=== PATIENT | female | born 1955 | race African-American/Black ===

== ENCOUNTER 2020-08-09 18:00 | Observation (INO) | payer MEDICARE, SELFPAY ==
[2020-08-09] VITALS (7 sets, daily range): BP systolic 128–140; BP diastolic 75–87; PULSE 80–114; RESP 18–25; TEMP 36.4; O2SAT 98–100
--- NOTE | ~2020-08-09 | XR_ITS ---
EXAMINATION: XR chest 1V portable EXAM DATE: 08/09/2020 19:03 INDICATION: Shortness of breath, wheezing cough. History of asthma and hypertension. TECHNIQUE: Portable AP frontal chest x-ray was obtained. There is no prior study for comparison. FINDINGS: The lungs are clear. There are no pleural effusions. Cardiac silhouette is prominent but magnified on this AP technique. There is no pneumothorax suspected. Mild degenerative changes of t he bones. IMPRESSION: No acute cardiopulmonary findings. Reviewed, dictated and finalized at location A.
--- NOTE | 2020-08-09 18:11 | ECG_ITS ---
Measurements Intervals [place] Rate: 106 P: 34 ME: 176 QRS: -4 QRSD: 96 T: 44 QT: 372 QTc: 495 Interpretive Statements SINUS TACHYCARDIA NONSPECIFIC ST & T-WAVE ABNORMALITY- DIFFUSE LEADS ABNORMAL ECG Electronically Signed On 08-09-2020 19:37:21 CDT by Reji Waite D.O.
--- NOTE | 2020-08-09 18:13 | ED.SOB ---
HPI - SOB/Dyspnea General Chief Complaint: Shortness of Breath/Dyspnea Stated Complaint: DIFFICULTY BREATHING,HX ASTHMA Time Seen by Provider: 08/09/20 18:06 Source: patient Mode of arrival: EMS Limitations: no limitations History of Present Illness HPI Narrative: This is a 65 year old female with history of asthma and hypertension who presents for evaluation of worsening shortness of breath. She states her daughter has been spray aerosols throughout the house all day. Her breathing has gradually gotten worse throughout the day. She reports hoarseness , cough and difficulty breathing. EMS gave patient an albuterol neb with Decadron 10 mg in route. Related Data Allergies Allergy/AdvReac Type Severity Reaction Status Date / Time iohexol Allergy Stopped Verified 08/09/20 18:20 [From contrast - CT, X-RAY] Breathing meperidine [From Demerol] Allergy Anaphylaxis Verified 08/09/20 18:20 Review of Systems Review of Systems: All systems reviewed & are unremarkable except as noted in HPI and below Constitutional: Constitutional: Denies chills Cardiovascular: Cardiovascular: Denies chest pain Respiratory: Respiratory: Reports cough and Reports dyspnea Gastrointestinal: Gastrointestinal: Denies abdominal pain and Denies nausea PMFSH Past Medical History Medical History (Updated 08/09/20 @ 23:38 by Yamileth Virgen MD) Asthma Hypertension Surgical History Surgical History (Updated 08/09/20 @ 18:14 by Yamileth Virgen MD) Hx of cholecystectomy Social History Social History (Updated 08/09/20 @ 18:14 by Yamileth Virgen MD) Smoking status: Never smoker Gender identity (if verbalized by the patient): Female Exam Const: General: alert Orientation/consciousness: patient oriented x3 HENMT: Head: normocephalic and atraumatic Face and sinus: face symmetric Mouth: Yes Normal oral and palatal mucosa present, Yes lip normal, Yes oropharynx normal and Yes moist mucous membranes Eyes: EOM: EOMs intact bilaterally Chest: Chest palpation & inspection: normal inspection of the chest Resp: Effort & Inspection: labored, no retractions and not tachypneic Auscultation: wheezes Cardio: Rate: regular rate Rhythm: regular rhythm Heart sounds: no murmurs GI: GI Palp: Yes Soft to palpation, No Tenderness to palpation present (GI) and No Guarding due to palpation present (GI) Auscultation: normal bowel sounds Skin: General skin exam: normal color Rashes: no rashes Neuro: General: patient oriented x3 and moves all extremities Psych: Mental Status: mental status grossly normal Affect: normal affect Course Reevaluation(s) Reevaluation #1: PAtient presented with likely asthma exacerbation. She receiving epi nephrine and afterwards she became extremely anxious and shaky. She was able to talk and follow commands. She was given ativan 0.5 mg to calm her down. Date: 08/09/20 Time: 18:30 Reevaluation #2: Patient is sleepy but she denies sob or chest pain. She is getting potassium supplementation Date: 08/09/20 Time: 20:00 Consultations Consultation #1: I Discussed case with Dr. Harper who accepts patient to medical floor for observation Date: 08/09/20 Time: 20:50 Vital Signs Vital signs: Vital Signs Pulse Rate 102 H 08/09/20 18:00 Respiratory Rate 18 08/09/20 18:00 Blood Pressure 140/75 08/09/20 18:00 Pulse Oximetry 100 08/09/20 18:00 Temperature 97.6 F 08/09/20 23:08 Pulse Rate 80 08/09/20 23:08 Respiratory Rate 18 08/09/20 23:08 Blood Pressure 132/78 08/09/20 23:08 Pulse Oximetry 99 08/09/20 23:08 MDM - SOB/Dyspnea Lab Data Attestation: I reviewed the patient's lab results. Result diagrams: 08/09/20 18:58 08/09/20 18:58 Labs: Lab Results 08/09/20 08/09/20 08/09/20 Range/Units 18:41 18:58 18:58 WBC 6.0 (4.5-10.0) K/mm3 RBC 4.26 (4.2-5.4) M/mm3 Hgb 12.4 (12.0-15.0) g/dL Hct 39.0 (37.0-47.
[2020-08-09] MEDS: diphenhydrAMINE HCl INJ 50 MG/ML VIAL 25 MG IV PUSH (18:22)
[2020-08-09] MEDS: FAMOTIDINE 20 MG/2 ML VIAL IV PUSH ×2 (18:22→22:45)
[2020-08-09] MEDS: IPRATROPIUM BR 0.02% INH SOLN 0.5 MG/2.5 ML VIAL INHALATION (18:23)
[2020-08-09] MEDS: ALBUTEROL SULFATE NEB 2.5 MG/0.5 ML INH 5 MG INHALATION (18:23)
[2020-08-09] MEDS: EPINEPHrine HCL INJ 1 MG/ML AMPUL 0.3 MG IM (18:23)
[2020-08-09] MEDS: LORazepam INJ (*CRX) 2 MG/ML VIAL 0.5 MG IV PUSH (18:42)
[2020-08-09 18:53] LABS: Alveolar/Arterial O2 Gradient 49.2 mmHg; Base Excess ABG 0.3 mEq/l (+/-2.0); Carboxyhemoglobin 0.4 % THb (0-2.0); Fractional Inspired Oxygen 21 %; HCO3 ABG 23.8 mEq/l (22.0-26.0); Methemoglobin ABG 0.3 %THb (0-1.5); Oxygen Saturation ABG 91.8 % (95.0-100.0); Oxyhemoglobin 90.2 % THb (90.0-100.0); PCO2 ABG 34.9 mmHg (35.0-45.0); PO2 ABG 58.7 mmHg (80.0-100.0); Reduced Hemoglobin 9.1 %THb (0-5.0); Total Hemoglobin 13.4 g/dL (12.0-18.0); pH ABG 7.452 (7.350-7.450)
[2020-08-09 18:54] LABS: Device ROOM AIR; Modified Allen's Test Pass; Site Drawn LEFT RADIAL
[2020-08-09 19:08] LABS: Basophils Percent Auto 0.2 % (0.2-1.2); Eosinophils Absolute Auto 0.1 K/mm3 (0-0.3); Eosinophils Percent Auto 1.7 % (0-4.4); Hemoglobin 12.4 g/dL (12.0-15.0); Lymphocytes Percent Auto 36.7 % (18.3-44.2); Mean Corpuscular HGB Conc 31.8 g/dl (32-36); Mean Corpuscular Hemoglobin 29.1 pg (26-34); Mean Corpuscular Volume 91.5 fl (80-100); Mean Platelet Volume 9.9 fl (7.4-10.4); Monocytes Absolute Auto 0.4 K/mm3 (0.1-0.6); Monocytes Percent Auto 7.2 % (2.6-8.5); Neutrophils Absolute Auto 3.3 K/mm3 (1.3-6.7); Neutrophils Percent Auto 54.2 % (45.5-73.1); Platelet Count Result 290 k/mm3 (150-375); Red Blood Count 4.26 M/mm3 (4.2-5.4); Red Cell Distribution Width 13.7 % (11.5-14.5)
[2020-08-09 19:21] LABS: Alanine Aminotransferase 17 U/L (4-35); Albumin Level 4.5 g/dL (3.5-5.1); Alkaline Phosphatase 103 U/L (38-126); Anion Gap 8 mmol/L (8-16); Aspartate Amino Transferase 36 U/L (14-36); Bilirubin,Total 0.5 mg/dL (0.2-1.3); Blood Urea Nitrogen 14 mg/dL (7-17); Calcium 9.3 mg/dL (8.4-10.2); Carbon Dioxide 27 mmol/L (22-30); Chloride 106 mmol/L (98-107); Estimated Glomerular Filt Rate > 60; Glucose 161 mg/dL (65-105); Potassium 2.8 mmol/L (3.4-5.0); Sodium 141 mmol/L (137-145)
[2020-08-09 19:25] LABS: Partial Thromboplastin Time 27.5 SECONDS (22.3-36.8); Prothrombin Time 14.1 Seconds (11.1-14.7)
--- NOTE | 2020-08-09 19:53 | PC.NURSE ---
Pharmacy sending up potassium drip at this time.
[2020-08-09] MEDS: POTASSIUM CHLORIDE 20 MEQ TABLET 40 MEQ PO (20:07)
[2020-08-09 20:10] LABS: Troponin I < 0.012 ng/mL (0.000-0.034)
--- NOTE | 2020-08-09 21:26 | PM.IMHP ---
H&P: HPI History of Present Illness Date/Time: 08/09/20 21:26 Chief Complaint: Shortness of breath Narrative: This is a 65-year-old female with past medical history significant for asthma patient presented to the emergency room due to worsening shortness of breath she states that she has been in her usual state of health up until at home her daughter was using a spray aerosols and these might have triggered her asthma attack. She denies any fevers rigors or chills no cough no sputum production no nausea no vomiting no diarrhea no abdominal pain. Preliminary workup has been essentially nonrevealing. Patient received nebulizer treatments in the emergency room and required to be placed on 2 L of supplemental oxygen. At the time of my visit patient was feeling much better already and she denied any complaints at the point. A chest x-ray was unremarkable. An ABG showed a PO2 of 53 and aunt chemistry was significant for a potassium of 2.8 Review of Systems Review of Systems: All systems reviewed & are unremarkable except as noted in HPI and below Constitutional: Constitutional: Denies chills Cardiovascular: Cardiovascular: Denies chest pain and Reports dyspnea Respiratory: Respiratory: Reports cough and Reports dyspnea Gastrointestinal: Gastrointestinal: Denies abdominal pain and Denies nausea PMFSH Past Medical History Medical History (Updated 08/09/20 @ 22:15 by Kevin Harper MD) Asthma Hypertension Surgical History Surgical History (Updated 08/09/20 @ 18:14 by Yamileth Virgen MD) Hx of cholecystectomy Social History Social History (Updated 08/09/20 @ 18:14 by Yamileth Virgen MD) Smoking status: Never smoker Gender identity (if verbalized by the patient): Female Meds Home Medications and Allergies Allergies Allergy/AdvReac Type Severity Reaction Status Date / Time iohexol Allergy Stopped Verified 08/09/20 18:20 [From contrast - CT, X-RAY] Breathing meperidine [From Demerol] Allergy Anaphylaxis Verified 08/09/20 18:20 Vital Signs Vital Signs - 24 hr 08/09/20 18:00 08/09/20 18:23 08/09/20 20:05 Pulse Rate 114 H 84 113 H Respiratory Rate 18 22 H 20 Blood Pressure 140/75 128/87 Pulse Oximetry 100 100 Exam Narrative: Exam Narrative: Laying in gurney Const: General: comfortable, no acute distress, well developed, alert and awake Nutritional Appearance: average body habitus Orientation/consciousness: patient oriented x3 HENMT: Head: normal to inspection, normocephalic and atraumatic Ears: hearing grossly normal bilaterally Face and sinus: normal facial exam Eyes: General: appearance normal, both eyes and all related structures Pupils: Equal, round and reactive pupils present EOM: EOMs intact bilaterally Neck: Neck: full ROM, no lymphadenopathy and no JVD Thyroid: thyroid normal Lymphatic: no lymphadenopathy noted Resp: Effort & Inspection: normal respiratory effort and able to speak in complete sentences Auscultation: clear to auscultation bilaterally Cardio: Jugular venous distension: no JVD Rate: regular rate Rhythm: regular rhythm Heart sounds: S1 normal heart sound present and S2 normal heart sound present GI: GI Palp: Yes Soft to palpation and Yes No hepatosplenomegaly present : General: Yes deferred Skin: Rashes: no rashes Wounds: no wounds Neuro: General: patient oriented x3 and CN's II-XI intact bilaterally Cranial nerves: Yes CN's II-XII intact bilaterally and Yes Equal, round and reactive pupils present Cognition (Neuro): normal cognition Speech: normal speech Gait exam (Neuro): Normal gait present Motor exam (neuro): 5/5 motor strength present throughout Extrem: General: normal to inspection, full ROM, no joint enlargement and no pedal edema H&P: Results Labs Labs: Short CBC 08/09/20 Range/Units 18:58 WBC 6.0 (4.5-10.0) K/mm3 Hgb 12.4 (12.0-15.0) g/dL Hct 39.0 (37.0-47.0) % Plt Count 290 (150-375) k/mm3 [facility] 05
[2020-08-10] VITALS (11 sets, daily range): BP systolic 129–147; BP diastolic 63–88; PULSE 72–96; RESP 16–18; TEMP 35.9–36.3; O2SAT 93–98; BMI 30.5
[2020-08-10 00:07] LABS: Glucose Point of Care 158 (65-105)
[2020-08-10 06:06] LABS: Anion Gap 3 mmol/L (8-16); Blood Urea Nitrogen 10 mg/dL (7-17); Calcium 9.4 mg/dL (8.4-10.2); Carbon Dioxide 27 mmol/L (22-30); Chloride 108 mmol/L (98-107); Estimated CRCL calculation 90 ml/min; Estimated Glomerular Filt Rate > 60; Glucose 132 mg/dL (65-105); Potassium 4.5 mmol/L (3.4-5.0); Sodium 138 mmol/L (137-145)
[2020-08-10] MEDS: predniSONE 40 MG, predniSONE 10 MG 50 MG PO (09:18)
[2020-08-10 09:30] LABS: Glucose Point of Care 105 (65-105)
[2020-08-10] MEDS: PANTOPRAZOLE 40 MG TABLET PO (09:35)
[2020-08-10] MEDS: PRAVASTATIN SODIUM 20 MG TABLET 40 MG PO (09:35)
[2020-08-10] MEDS: FAMOTIDINE 20 MG/2 ML VIAL IV PUSH ×2 (09:35→20:41)
[2020-08-10] MEDS: amLODIPine BESYLATE 5 MG TABLET 10 MG PO (09:35)
[2020-08-10] MEDS: IPRATROPIUM BR 0.02% INH SOLN 0.5 MG/2.5 ML VIAL INHALATION ×2 (13:04→20:17)
[2020-08-10] MEDS: ALBUTEROL SULFATE NEB 2.5 MG/0.5 ML INH INHALATION ×2 (13:04→20:18)
[2020-08-10 13:57] LABS: Glucose Point of Care 108 (65-105)
--- NOTE | 2020-08-10 15:02 | PM.IMPN ---
Progress Note: A&P Assessment and Plan (1) Acute respiratory failure with hypoxemia: Code(s): J96.01 - Acute respiratory failure with hypoxia Status: Acute Assessment and Plan: Patient was placed on 2 L via nasal cannula on arrival with improvement of her oxygenation. At this time she is resting comfortably on room air, 97%. Will continue monitoring oxygenation with continued treatment of acute asthma exacerbation. (2) Asthma with exacerbation: Code(s): J45.901 - Unspecified asthma with (acute) exacerbation Status: Acute Assessment and Plan: Patient has symptoms of an asthma exacerbation due to a cleaning spray her daughter used in her house. The patient's daughter was taking her to work later that evening and she began having shortness of breath, wheezing, and felt like her throat was closing up. She has had similar symptoms before where she needed he has an EpiPen on herself. Initial vitals showed she was tachycardic at 102 beats per minute, respiratory rate 18, oxygenation 100% on room air, blood pressure 140/75, and afebrile. Initial labs showed normal CBC with differential, normal coag panel, ABG showed hyperventilation with elevated PTH, low CO2 and oxygen levels. She was found to have hypokalemia at 2.8 which was replenished. Chest x-ray shows no acute cardiopulmonary disease. On arrival to the emergency room they gave her epinephrine as well as breathing treatments with only minimal improvement of her symptoms. She continued to have shortness of breath issues and was admitted under observation for further evaluation and asthma exacerbation treatment. Patient is still having some chest tightness, shortness of breath, wheezing-will start scheduled DuoNeb treatments q.6 hours, IV Solu-Medrol 40 mg q.6 hours and continue monitoring. She was on 3 different inhalers for her asthma which was prescribed by her PCP, but she has not been on them for 1 year because she use to get free samples from her PCPs office and has not been able to get them for a while. Will call her pharmacy to see what inhalers she had been on so we can prescribe them at discharge. (3) Acute hypokalemia: Code(s): E87.6 - Hypokalemia Status: Acute Assessment and Plan: Was 2.8 on arrival. Replenished. Now normal. Time Spent With Patient Time with patient: 25 - 35 minutes Subjective Date/time seen: 08/10/20 15:02 Interval history: Date of service 08/10/2020: She reports having some chest tightness, trouble taking a deep breath, shortness of breath with walking and wheezing. She has a history of having severe asthma exacerbations and been on steroids multiple times in the past. She has had these EpiPen on herself before due to an allergic reaction. She does feel slightly lightheaded as well with walking around. She denies any fevers, chills, productive cough, leg swelling, calf pain, or any other symptoms at this time. Review of Systems Review of Systems: All systems reviewed & are unremarkable except as noted in HPI and below Exam Narrative: Exam Narrative: General: 65-year-old woman sitting up in bed talking on the phone. Appears comfortable. In no acute distress. Skin: No jaundice or cyanosis. Good skin turgor. Neck: Full range of motion. Supple. Respiratory: Decreased lung sounds throughout, slight end-expiratory wheezing noted to lower lung arriaga bilaterally. No rales or rhonchi. No bony chest wall tenderness. Cardiovascular: The heart has a regular rate and rhythm without murmur. Lower extremities: No lower extremity edema. Distal pulses are easily palpated. No calf tenderness to palpation. Gastrointestinal: The abdomen is soft, nontender and nondistended with active bowel sounds. Psychiatric: Lucid and oriented. Memory intact. Neurologic: No focal
[2020-08-10 17:40] LABS: Glucose Point of Care 138 (65-105)
[2020-08-10] MEDS: methylPREDNISolone SOD SUCC 40 MG VIAL IV PUSH (17:42)
[2020-08-10 21:34] LABS: Glucose Point of Care 180 (65-105)
[2020-08-11] MEDS: methylPREDNISolone SOD SUCC 40 MG VIAL IV PUSH ×2 (00:13→06:32)
[2020-08-11] MEDS: IPRATROPIUM BR 0.02% INH SOLN 0.5 MG/2.5 ML VIAL INHALATION ×2 (02:28→08:54)
[2020-08-11] MEDS: ALBUTEROL SULFATE NEB 2.5 MG/0.5 ML INH INHALATION ×2 (02:28→08:54)
[2020-08-11 02:30] VITALS: PULSE 76; RESP 18
[2020-08-11 02:40] VITALS: PULSE 78; RESP 18
[2020-08-11 05:42] VITALS: BP 127/76; PULSE 69; RESP 18; TEMP 36.6; O2SAT 98
[2020-08-11] MEDS: amLODIPine BESYLATE 5 MG TABLET 10 MG PO (08:02)
[2020-08-11] MEDS: FAMOTIDINE 20 MG/2 ML VIAL IV PUSH (08:03)
[2020-08-11] MEDS: PRAVASTATIN SODIUM 20 MG TABLET 40 MG PO (08:03)
[2020-08-11 08:18] LABS: Glucose Point of Care 137 (65-105)
[2020-08-11 08:56] VITALS: PULSE 76; RESP 20; O2SAT 96
[2020-08-11 09:08] VITALS: PULSE 76; RESP 20
--- NOTE | 2020-08-11 11:25 | PM.DS ---
DS: Admitting Diagnosis Admitting Diagnosis Admitting Diagnosis: SOB DS: Discharge Diagnosis Discharge Diagnosis (1) Asthma with exacerbation: Code(s): J45.901 - Unspecified asthma with (acute) exacerbation Status: Acute Assessment and Plan: Patient is a 65 year old woman with a history of asthma, who presented to the ER with shortness of breath, feeling like her throat was closing up after breathing in cleaning solution at her home earlier that day. She has had similar symptoms before where she needed he has an EpiPen on herself. Initial vitals showed she was tachycardic at 102 beats per minute, respiratory rate 18, oxygenation 100% on room air, blood pressure 140/75, and afebrile. Initial labs showed normal CBC with differential, normal coag panel, ABG showed hyperventilation with elevated PTH, low CO2 and oxygen levels. She was found to have hypokalemia at 2.8 which was replenished. Chest x-ray shows no acute cardiopulmonary disease. On arrival to the emergency room they gave her epinephrine as well as breathing treatments with only minimal improvement of her symptoms. She continued to have shortness of breath issues and was admitted under observation for further evaluation and asthma exacerbation treatment with Duoneb treatments, IV Solu-Medrol 40 mg q.6 hours. She was feeling much better, felt like her breathing was back to baseline. She was restarted on her Symbicort, given prednisone taper, Rx for EpiPen and Albuterol Inhaler. The patient understands and agrees with the plan all questions answered. Told the patient she has a follow-up with her primary care provider for further evaluation and treatment. (2) Acute respiratory failure with hypoxemia: Code(s): J96.01 - Acute respiratory failure with hypoxia Status: Acute Assessment and Plan: Patient was placed on 2 L via nasal cannula on arrival with improvement of her oxygenation. At this time she is resting comfortably on room air, 97%. Will continue monitoring oxygenation with continued treatment of acute asthma exacerbation. (3) Acute hypokalemia: Code(s): E87.6 - Hypokalemia Status: Acute Assessment and Plan: Was 2.8 on arrival. Replenished. Now normal. DS: Summary Hospital Course Hospital Course: See above Status at Discharge Cognitive/behavioral status at discharge: Stable, improved. Time Spent with Patient Time attestation: Total time spent providing and/or coordinating discharge services: 41 Time spent: Greater than 30 minutes Exam Narrative: Exam Narrative: General: 65-year-old woman sitting up in bed talking on the phone. Appears comfortable. In no acute distress. Skin: No jaundice or cyanosis. Good skin turgor. Neck: Full range of motion. Supple. Respiratory: Good air movement in all lung arriaga. No wheezing, rales or rhonchi. No bony chest wall tenderness. Cardiovascular: The heart has a regular rate and rhythm without murmur. Lower extremities: No lower extremity edema. Distal pulses are easily palpated. No calf tenderness to palpation. Gastrointestinal: The abdomen is soft, nontender and nondistended with active bowel sounds. Psychiatric: Lucid and oriented. Memory intact. Neurologic: No focal deficits. Speech is clear. No facial drooping. DS: Data Data Completed and Pending Labs on day of discharge: Labs from last 24 hours 08/11/20 08/10/20 08/10/20 08:12 21:31 17:37 POC Capillary Glucose 137 H 180 H 138 H 08/10/20 13:37 POC Capillary Glucose 108 Discharge Plan Discharge Attending physician on discharge: Laureano Fajardo Discharging Clinician: Simona Sigala Anticipated Discharge Date/Time: 08/11/20 11:16 Patient Disposition: Home, Self-Care Activity: as tolerated Diet: regular Discharge Instructions: ____
== END 2020-08-11 13:10 | disposition home or self-care (01) ==
LOC: ANHED 18:30 → ANH2MED 21:51
PROVIDERS: Physician Assistant; Admitting Provider Internal Medicine; Emergency Provider General Practice; PCP Family Medicine; Visit Provider Internal Medicine
DX: J45.901 Unspecified asthma with (acute) exacerbation (principal); J96.01 Acute respiratory failure with hypoxia; E87.6 Hypokalemia; I10 Essential (primary) hypertension; Z79.51 Long term (current) use of inhaled steroids
CPT/HCPCS: 36415; 36600; 71045; 80048; 80053; 82375; 82805; 82948; 83050; 84484; 85025; 85610; 85730; 93005; 94640; 96372; 96374; 96375; 96376; 99285; A9270; G0378; J0171; J1200; J2060; J2920; J3480; J7512